=== PATIENT | female | born 1995 | race Caucasian/White ===

== ENCOUNTER 2020-07-15 05:02 | Emergency (ER) | payer BC ==
[2020-07-15 05:42] VITALS: BMI 24.1
[2020-07-15 06:19] LABS: BASO % 0.7 % (0-2.0); HEMATOCRIT 39.9 % (32.4-45.2); HEMOGLOBIN 13.2 GM/dL (10.7-15.3); LYMPH % 42.7 % (8-40); MCH 29.1 pg (25.7-33.7); MCHC 33.2 g/dl (32.0-36.0); MEAN CELL VOLUME 87.7 fl (80-96); MEAN PLT VOLUME 9.5 fl (7.5-11.1); MONO % 9.6 % (3.8-10.2); PLATELET COUNT 218 K/MM3 (134-434); RBC 4.55 M/mm3 (3.60-5.2); RDW 13.3 % (11.6-15.6); WHITE BLOOD COUNT 6.7 K/mm3 (4.0-10.0)
[2020-07-15 06:34] LABS: INR 0.91 (0.83-1.09)
[2020-07-15 06:37] LABS: ACTIVATED PTT 31.3 SECONDS (25.2-36.5); CHLORIDE 105 mmol/L (98-107); POTASSIUM 3.5 mmol/L (3.5-5.1); SODIUM 137 mmol/L (136-145)
[2020-07-15 06:39] LABS: CALCIUM 8.9 mg/dL (8.5-10.1)
[2020-07-15 06:40] LABS: ANION GAP 5 MMOL/L (8-16); BLOOD UREA NITROGEN 12.8 mg/dL (7-18); CO2 28 mmol/L (21-32); GLUCOSE,RANDOM 93 mg/dL (74-106)
[2020-07-15 06:42] LABS: TRIGLYCERIDES 46 mg/dL (0-150)
[2020-07-15 06:43] LABS: CHOLESTEROL 187 mg/dL (50-200); CREATININE 0.7 mg/dL (0.55-1.3); SGOT/AST 16 U/L (15-37); SGPT/ALT 28 U/L (13-61)
[2020-07-15 06:44] LABS: BILIRUBIN,TOTAL 0.8 mg/dL (0.2-1); LDL CHOLESTEROL (ONLY SJRH) 79 mg/dL (5-100); TOT PROT 6.9 g/dl (6.4-8.2)
[2020-07-15 06:45] LABS: ALK PHOS 63 U/L (45-117); HDL CHOLESTEROL 100 mg/dL (40-60)
[2020-07-15 06:46] LABS: PH,URINE 6.5 (5.0-8.0); URINE APPEARANCE CLEAR; URINE BILIRUBIN NEGATIVE (NEGATIVE); URINE COLOR YELLOW; URINE GLUCOSE (UA) NEGATIVE (NEGATIVE); URINE KETONE NEGATIVE (NEGATIVE); URINE LEUK ESTERASE NEGATIVE (NEGATIVE); URINE NITRITE NEGATIVE (NEGATIVE); URINE PROTEIN NEGATIVE (NEGATIVE)
[2020-07-15 13:42] VITALS: BP 103/54; PULSE 77; TEMP 98.6
== END 2020-07-15 13:44 | disposition home or self-care (01) ==
LOC: JER 05:02 → JERBED 10:42 → UNDOADMOB 10:42 → JER 13:44
DX: R53.1 Weakness (principal); L20.9 Atopic dermatitis, unspecified
CPT/HCPCS: 36415; 70450-TC; 70551-TC; 80053; 80061; 81003; 82550; 82553; 83721; 84484; 84703; 85025; 85610; 85730; 86850; 86900; 86901; 93005; 93010; 99284-25

== ENCOUNTER 2020-09-09 04:23 | Emergency (ER) | payer BC ==
[2020-09-09] MEDS ORDERED: TETRACAINE 0.5% OPHTH SOLN 2 ML BOTTLE ONE (04:45)
[2020-09-09] MEDS ORDERED: FLUORESCEIN NA 1 EA STRIP ONE (04:47)
[2020-09-09 07:28] VITALS: BP 121/75; PULSE 77; TEMP 97.4
== END 2020-09-09 07:33 | disposition short-term general hospital (02) ==
LOC: JER 04:23
DX: H10.211 Acute toxic conjunctivitis, right eye (principal)
CPT/HCPCS: 99285-25

== ENCOUNTER 2020-11-03 03:34 | Emergency (ER) | payer BC ==
[2020-11-03 04:05] VITALS: BP 105/65; PULSE 100; TEMP 98.1; BMI 24.7
[2020-11-03] MEDS ORDERED: ACETAMINOPHEN 325 MG TABLET (FP) PO ONE (04:23)
[2020-11-03] MEDS ORDERED: ACETAMINOPHEN 325 MG TABLET (FP) ONE (04:44)
[2020-11-03] MEDS ORDERED: BACITRACIN 15 GM TUBE TOPICAL OINTMENT TP ONE (05:15)
[2020-11-03] MEDS ORDERED: BACITRACIN 0.9 GM PACKET ONE ×2 (05:16→05:23)
== END 2020-11-03 05:54 | disposition home or self-care (01) ==
LOC: JER 03:34
DX: S61.011A Laceration without foreign body of right thumb without damage to nail, initial encounter (principal)
CPT/HCPCS: 84703; 99283-25

== ENCOUNTER 2021-01-28 21:35 | Emergency (ER) | payer BC ==
[2021-01-28 21:51] VITALS: BP 119/75; PULSE 95; TEMP 98; BMI 25.2
== END 2021-01-29 04:48 | disposition home or self-care (01) ==
LOC: JER 21:35
DX: R20.2 Paresthesia of skin (principal)
CPT/HCPCS: 70450-TC; 82962; 99284-25